=== PATIENT | male | born 1940 | race Caucasian/White ===

== ENCOUNTER 2021-12-28 09:37 | Day surgery (SDC) | payer MEDICARE, OTHER ==
[~2021-12-28] VITALS: Ht 154.9 cm; Wt 76.5 kg
[2021-12-28] MEDS ORDERED: albumin 25% 100mL bottle x 1 IV PRN (10:05)
[2021-12-28 10:54] VITALS: BP 146/78
[2021-12-28] MEDS ORDERED: TADA20TA PO (11:01)
[2021-12-28] MEDS ORDERED: FURO20TA4 PO (11:01)
[2021-12-28] MEDS ORDERED: HYDR-3972 PO (11:01)
[2021-12-28] MEDS ORDERED: APIX5TAB3 PO (11:01)
[2021-12-28] MEDS ORDERED: BISO1TAB38 PO (11:01)
[2021-12-28] MEDS ORDERED: LEVO100T9 PO (11:01)
[2021-12-28] MEDS ORDERED: TEST200V33 IM (11:01)
[2021-12-28] MEDS ORDERED: LORA-268 PO (11:01)
[2021-12-28] MEDS ORDERED: LIDOcaine 1%/PF 5ML 10 MG/ML VIAL IJ ONE (11:05)
[2021-12-28 11:15] VITALS: BP 153/92
[2021-12-28 11:30] VITALS: BP 155/106
[2021-12-28 11:45] VITALS: BP 152/89
[2021-12-28 12:00] VITALS: BP 149/81
== END 2021-12-28 12:05 | disposition home or self-care (01) ==
LOC: SSTAY O 09:37
PROVIDERS: ATTEND Preventive Medicine Aerospace Medicine
DX: J90 Pleural effusion, not elsewhere classified (principal); G47.33 Obstructive sleep apnea (adult) (pediatric); I48.91 Unspecified atrial fibrillation; E03.9 Hypothyroidism, unspecified; F41.9 Anxiety disorder, unspecified; I27.20 Pulmonary hypertension, unspecified; Z98.890 Other specified postprocedural states; Z79.899 Other long term (current) drug therapy
CPT/HCPCS: 32555; 87070; J3490; 36415; 88108; 88305; 88341; 88342; C1729

== ENCOUNTER 2023-02-07 12:23 | Day surgery (SDC) | payer MEDICARE, OTHER ==
[2023-02-03 15:45] LABS: EOSINOPHILS # (AUTO) 0.3 X10'3 (0-0.9); MEAN PLATELET VOLUME 8.9 FL (7.4-10.4)
[2023-02-03 15:48] LABS: BASOPHILS % (AUTO) 0.4 % (0-1); EOSINOPHILS % (AUTO) 3.1 % (0-6); HEMATOCRIT 58.3 % (42.0-52.0); LYMPHOCYTES % (AUTO) 30.3 % (21-51); MEAN CORPUSCULAR HEMOGLOBIN 31.8 PG (27.0-31.0); MEAN CORPUSCULAR VOLUME 93.5 FL (78-98); MONOCYTES # (AUTO) 0.8 X10'3 (0-0.9); MONOCYTES % (AUTO) 8.4 % (2-12); NEUTROPHILS # (AUTO) 5.8 X10'3 (1.8-7.7); NEUTROPHILS % (AUTO) 57.8 % (42-75); PLATELET COUNT 171 X10'3 (140-440); RED BLOOD COUNT 6.23 X10'6 (4.70-6.10); RED CELL DISTRIBUTION WIDTH 15.7 % (11.5-14.5)
[2023-02-03 15:50] LABS: ALBUMIN 3.4 G/DL (3.4-5.0); ANION GAP 7 (8-16); BLOOD UREA NITROGEN 19 MG/DL (7-18); BUN/CREATININE RATIO 11.2 (10.0-20.0); CALCIUM 8.8 MG/DL (8.5-10.1); CHLORIDE 104 MMOL/L (99-107); CREATININE 1.69 MG/DL (0.60-1.10); GLUCOSE 90 MG/DL (70-104); POTASSIUM 3.9 MMOL/L (3.5-5.1); SODIUM 141 MMOL/L (135-145); eGFR 39 ML/MIN
[2023-02-03 16:06] LABS: HEMOGLOBIN 19.8 g/dl (14.0-17.9)
[~2023-02-07] VITALS: Ht 154.9 cm; Wt 73.8 kg
[2023-02-07] VITALS (7 sets, daily range): BP systolic 104–149; BP diastolic 67–110; PULSE 89–118; RESP 16–26; TEMP 98; O2SAT 91–95
[~2023-02-07 12:23] MED LIST: APIX5TAB3 PO; BISO1TAB38 PO; FURO20TA4 PO; HYDR-3972 PO; LEVO100T9 PO; LORA-268 PO; TADA20TA PO; TEST200V33 IM
[2023-02-07] MEDS ORDERED: normal saline 1,000 ML IV SCH (12:35)
[2023-02-07] MEDS ORDERED: LORazepam 0.5 MG tablet PO PRN (12:35)
[2023-02-07] MEDS ORDERED: GUAI400T92 PO (13:02)
[2023-02-07] MEDS ORDERED: POTA10CA85 PO (13:02)
[2023-02-07] MEDS ORDERED: MULT-1172 PO (13:02)
[2023-02-07] MEDS ORDERED: METO-395 PO (13:02)
[2023-02-07] MEDS ORDERED: EMPA10TA PO (13:02)
[2023-02-07] MEDS ORDERED: LIDOcaine 1% 30ml preserv. free vial ONE (14:18)
[2023-02-07] MEDS ORDERED: midazolam 1 mg/ML 2ml injection ONE (14:19)
[2023-02-07] MEDS ORDERED: iohexol 350 MG/ML 50ML vial IV ONE (14:19)
[2023-02-07] MEDS ORDERED: fentaNYL/PF 50MCG/1 ML 2ML syringe ONE (14:19)
[2023-02-07] MEDS ORDERED: HYDROcodone/acetaminophen 10/325mg tab PO PRN (16:00)
[2023-02-07] MEDS ORDERED: HYDROcodone/acetaminophen 5mg/325mg tablet PO PRN (16:00)
[2023-02-08 06:48] LABS: ISTAT Hct MIX 50 %PCV (42-52); ISTAT O2 SATURATION MIX VENOUS 61 % (60-80); ISTAT SOURCE BLNK
== END 2023-02-07 17:28 | disposition home or self-care (01) ==
LOC: SSTAY O 12:23
PROVIDERS: ATTEND Student in an Organized Health Care Education/Training Program
DX: I11.0 Hypertensive heart disease with heart failure (principal); I50.9 Heart failure, unspecified; I48.91 Unspecified atrial fibrillation; G47.33 Obstructive sleep apnea (adult) (pediatric); E03.9 Hypothyroidism, unspecified; Z79.01 Long term (current) use of anticoagulants; Z79.899 Other long term (current) drug therapy
CPT/HCPCS: 33289; 80048; 82803; 85014; 85025; 93005; 99152; 99153; C2624; J1644; J2250; J3010; J3490; J7030; Q9967; A6258; A6449; C1751; C1769; C1892

== ENCOUNTER 2023-08-03 11:21 | Emergency (ER) | payer MEDICARE, OTHER ==
[~2023-08-03] VITALS: Ht 149.9 cm; Wt 76.6 kg
[~2023-08-03 11:21] MED LIST changes: -BISO1TAB38 PO; +EMPA10TA PO; +GUAI400T92 PO; -HYDR-3972 PO; -LORA-268 PO; +METO-395 PO; +MULT-1172 PO; +POTA10CA85 PO
[2023-08-03 11:23] VITALS: BP 125/60; PULSE 83; RESP 16; TEMP 98; O2SAT 96
[2023-08-03 13:18] LABS: BASOPHILS % (AUTO) 0.3 % (0-1); EOSINOPHILS # (AUTO) 0.4 X10'3 (0-0.9); EOSINOPHILS % (AUTO) 4.4 % (0-6); HEMATOCRIT 50.6 % (42.0-52.0); HEMOGLOBIN 16.9 g/dl (14.0-17.9); LYMPHOCYTES # (AUTO) 2.1 X10'3 (1.1-4.8); LYMPHOCYTES % (AUTO) 22.7 % (21-51); MEAN CORPUSCULAR HEMOGLOBIN 31.8 PG (27.0-31.0); MEAN CORPUSCULAR HGB CONC 33.5 g/dL (33.0-36.5); MEAN CORPUSCULAR VOLUME 94.9 FL (78-98); MEAN PLATELET VOLUME 9.4 FL (7.4-10.4); MONOCYTES # (AUTO) 0.8 X10'3 (0-0.9); MONOCYTES % (AUTO) 8.8 % (2-12); NEUTROPHILS % (AUTO) 63.8 % (42-75); PLATELET COUNT 203 X10'3 (140-440); RED BLOOD COUNT 5.33 X10'6 (4.70-6.10); RED CELL DISTRIBUTION WIDTH 15.3 % (11.5-14.5); WHITE BLOOD COUNT 9.4 X10'3 (4.5-11.0)
[2023-08-03 14:00] LABS: ALANINE AMINOTRANSFERASE 18 U/L (12-78); ALBUMIN 3.4 G/DL (3.4-5.0); ALBUMIN/GLOBULIN RATIO 0.9 (1.1-1.5); ALKALINE PHOSPHATASE 48 IU/L (46-116); ANION GAP 10 (8-16); ASPARTATE AMINO TRANSFERASE 21 U/L (10-37); BILIRUBIN,TOTAL 0.4 MG/DL (0.1-1.0); BLOOD UREA NITROGEN 32 MG/DL (7-18); BUN/CREATININE RATIO 15.4 (10.0-20.0); CALCIUM 8.4 MG/DL (8.5-10.1); CHLORIDE 109 MMOL/L (99-107); CREATININE 2.08 MG/DL (0.60-1.10); GLUCOSE 89 MG/DL (70-104); PRO BRAIN NATRIURETIC PEPTIDE 325 PG/ML (0-450); SODIUM 144 MMOL/L (135-145); TOTAL CARBON DIOXIDE 24.9 MMOL/L (24-32); TOTAL PROTEIN 7.4 G/DL (6.4-8.2); eCRCL 19 ML/MIN; eGFR 31 ML/MIN
[2023-08-03 14:02] LABS: POTASSIUM 4.4 MMOL/L (3.5-5.1)
[2023-08-03] MEDS ORDERED: ALBU18HF2 INH (14:54)
[2023-08-03] MEDS ORDERED: LEVO-65 PO (14:54)
[2023-08-03] MEDS ORDERED: HYDR-3964 PO (15:02)
== END 2023-08-03 16:06 | disposition home or self-care (01) ==
LOC: ER 11:21
DX: R05.9 Cough, unspecified (principal)
CPT/HCPCS: 36415; 71046; 80053; 83880; 85025; 99284

== ENCOUNTER 2023-09-06 09:09 | Inpatient (IN) | payer MEDICARE, OTHER ==
[~2023-09-06] VITALS: Ht 162.6 cm; Wt 75.0 kg
[2023-09-06] VITALS (8 sets, daily range): BP systolic 93; BP diastolic 49; PULSE 79–173; RESP 16–29; TEMP 97.9; O2SAT 93–97
[~2023-09-06 09:09] MED LIST changes: +ALBU18HF2 INH
[2023-09-06] MEDS: normal saline 1000ML IV soln IVB ONE ×2 (09:27→10:01)
[2023-09-06] MEDS: acetaminophen 650mg rectal suppository RC STA (09:31)
[2023-09-06] MEDS: methylPREDNISolone sod succ 125mg/2ml vial IV ONE (09:32)
[2023-09-06] MEDS: metoprolol tartrate 1mg/ml inj IV ONE (09:32)
[2023-09-06] MEDS: piperacillin/tazo 3.375gm/50ml 50 ML IV ONE (09:32)
[2023-09-06 09:38] LABS: ABG BASE EXCESS 0.5 mmol/L (-2.0-2.0); ABG HCO3 23.2 mmol/L (22.0-26.0); ABG OXYGEN SATURATION 98.2 % (94-97); ABG PCO2 (T) 36.9 mmHg (35.0-48.0); ABG PH (T) 7.425 (7.340-7.440); ABG PO2 (T) 121.7 mmHg (75.0-100.0); ALLEN'S TEST Yes; FCOHb 0.3 % (0.0-3.9); FHHb 1.8 % (0.0-5.0); FMetHb 0.7 % (0.0-1.5); FO2Hb 97.2 % (94-97); PATIENT TEMPERATURE 39.3; TOTAL HEMOGLOBIN 20.7 G/dl (14.0-17.9)
[2023-09-06 09:42] LABS: MEAN CORPUSCULAR VOLUME 97.7 FL (78-98); MONOCYTES # (AUTO) 0.5 X10'3 (0-0.9); MONOCYTES % (AUTO) 2.3 % (2-12)
[2023-09-06 09:44] LABS: BASOPHILS % (AUTO) 0.2 % (0-1); EOSINOPHILS # (AUTO) 0.1 X10'3 (0-0.9); EOSINOPHILS % (AUTO) 0.3 % (0-6); HEMATOCRIT 56.2 % (42.0-52.0); LYMPHOCYTES % (AUTO) 5.1 % (21-51); MEAN CORPUSCULAR HEMOGLOBIN 32.9 PG (27.0-31.0); MEAN CORPUSCULAR HGB CONC 33.7 g/dL (33.0-36.5); MEAN PLATELET VOLUME 9.3 FL (7.4-10.4); NEUTROPHILS # (AUTO) 18.8 X10'3 (1.8-7.7); NEUTROPHILS % (AUTO) 92.1 % (42-75); PLATELET COUNT 144 X10'3 (140-440); RED BLOOD COUNT 5.75 X10'6 (4.70-6.10); RED CELL DISTRIBUTION WIDTH 16.7 % (11.5-14.5); WHITE BLOOD COUNT 20.4 X10'3 (4.5-11.0)
[2023-09-06 09:56] LABS: HEMOGLOBIN 18.9 g/dl (14.0-17.9)
[2023-09-06 10:09] LABS: ALBUMIN 3.2 G/DL (3.4-5.0); ANION GAP 10 (8-16); BLOOD UREA NITROGEN 22 MG/DL (7-18); CALCIUM 8.9 MG/DL (8.5-10.1); CHLORIDE 102 MMOL/L (99-107); CREATININE 1.57 MG/DL (0.60-1.10); GLUCOSE 104 MG/DL (70-104); MAGNESIUM 1.8 MG/DL (1.5-2.4); PRO BRAIN NATRIURETIC PEPTIDE 2714 PG/ML (0-450); SODIUM 138 MMOL/L (135-145); eCRCL 31 ML/MIN; eGFR 43 ML/MIN
[2023-09-06 10:23] LABS: POTASSIUM 4.6 MMOL/L (3.5-5.1)
[2023-09-06 10:27] LABS: BILIRUBIN,URINE NEGATIVE (Neg); CLARITY,URINE SLIGHTLY CLOUDY (Clear); COLOR,URINE YELLOW (Yellow); GLUCOSE, URINE 500 mg/dl (Neg); KETONES,URINE NEGATIVE (Neg); LEUKOCYTE ESTERASE ,URINE TRACE (Neg); NITRITES, URINE NEGATIVE (Neg); OCCULT BLOOD,URINE MODERATE (Neg); PH,URINE 5.5 (4.8-8.0); PROTEIN,URINE NEGATIVE (Neg); UROBILINOGEN,URINE 0.2 E.U/dL (0.2-1.0)
[2023-09-06] MEDS: carvedilol 6.25mg tablet PO ONE (10:29)
[2023-09-06 10:34] LABS: UA COLLECTION TYPE URINAL
[2023-09-06 10:35] LABS: SQUAMOUS EPITHELIAL CELL,UR FEW /LPF (FEW)
[2023-09-06 10:36] LABS: BACTERIA,URINE FEW /HPF (Neg); RBC,URINE 20-50 /HPF (0-2)
[2023-09-06] MEDS: normal saline 1000ml 1,000 ML IV ONE (10:42)
[2023-09-06] MEDS: amiodarone 150mg/dext, iso-os 100 ML IV ONE (12:30)
[2023-09-06] MEDS: vancomycin/NS 1 GM ADD-VANTAGE 250 ML IV ONE (12:37)
[2023-09-06] MEDS: amiodarone/D5 360MG/200ML BAG 200 ML IV SCH (12:45)
[2023-09-06] MEDS ORDERED: VALS40TA11 PO (13:25)
[2023-09-06] MEDS ORDERED: SPIR25TA5 PO (13:25)
[2023-09-06] MEDS ORDERED: CARV-49 PO (13:25)
[2023-09-06] MEDS ORDERED: ALPR0.252 PO (13:27)
[2023-09-06] MEDS ORDERED: PRE5T PO (13:27)
[2023-09-06] MEDS ORDERED: mag hydrox/Alum hydrox/simeth 30ml oral suspension PO PRN (15:20)
[2023-09-06] MEDS ORDERED: magnesium 2GM in 50ml NS 50 ML IV PRN (15:20)
[2023-09-06] MEDS ORDERED: ondansetron/PF 4mg/2ml inj IV PRN (15:20)
[2023-09-06] MEDS ORDERED: magnesium Cl slow-release 64mg tablet PO PRN (15:20)
[2023-09-06] MEDS ORDERED: potassium Cl 40MEQ/1/2NS 520ml 520 ML IV PRN (15:20)
[2023-09-06] MEDS ORDERED: magnesium hydroxide 30ml (MOM) UD suspension PO PRN (15:20)
[2023-09-06] MEDS ORDERED: magnesium 4gm in 100ml NS 100 ML IV PRN (15:20)
[2023-09-06] MEDS ORDERED: potassium Cl 20 mEq SR tablet PO PRN ×2 (15:20)
[2023-09-06] MEDS: ipratropium/albuterol 3ml nebule NEB SCH (15:30)
[2023-09-06] MEDS: piperacillin/tazo 3.375gm/50ml 50 ML IV SCH (15:33)
[2023-09-06] MEDS: ringers solution, lacted 1,000 ML IV SCH (15:33)
[2023-09-06] MEDS: digoxin 250mcg/ml 2ml ampule IV STA (15:42)
[2023-09-06 17:29] LABS: D-DIMER 0.54 MG/L FEU (0-0.50)
[2023-09-06] MEDS ORDERED: carvedilol 6.25mg tablet PO SCH (20:00)
[2023-09-06] MEDS: K and/or MAG REPLACEMENT MC SCH (20:00)
[2023-09-06] MEDS: docusate sod 100mg capsule PO SCH (20:00)
[2023-09-06] MEDS: carvedilol 6.25mg tablet PO SCH (20:29)
[2023-09-06] MEDS: apixaban 2.5mg tablet PO SCH (20:29)
[2023-09-06] MEDS: TADALAFIL 20MG PO SCH (20:31)
[2023-09-06] MEDS: digoxin 250mcg/ml 2ml ampule IV ONE (21:29)
[2023-09-06] MEDS: acetaminophen 325mg tablet PO PRN (22:14)
[2023-09-06] MEDS: ALPRAZolam 0.25mg tablet PO SCH (23:11)
[2023-09-07] VITALS (18 sets, daily range): BP systolic 90–132; BP diastolic 57–89; PULSE 67–118; RESP 16–22; TEMP 97.7–98.6; O2SAT 91–98
[2023-09-07] MEDS: digoxin 250mcg/ml 2ml ampule IV ONE ×2 (03:35→03:36)
[2023-09-07 09:12] LABS: BASOPHILS # (AUTO) 0.1 X10'3 (0-0.2); BASOPHILS % (AUTO) 0.5 % (0-1); EOSINOPHILS % (AUTO) 0.1 % (0-6); HEMATOCRIT 52.2 % (42.0-52.0); HEMOGLOBIN 17.2 g/dl (14.0-17.9); LYMPHOCYTES # (AUTO) 0.7 X10'3 (1.1-4.8); LYMPHOCYTES % (AUTO) 2.3 % (21-51); MEAN CORPUSCULAR HEMOGLOBIN 32.8 PG (27.0-31.0); MEAN CORPUSCULAR HGB CONC 32.9 g/dL (33.0-36.5); MEAN CORPUSCULAR VOLUME 99.8 FL (78-98); MEAN PLATELET VOLUME 9.8 FL (7.4-10.4); MONOCYTES # (AUTO) 1.2 X10'3 (0-0.9); MONOCYTES % (AUTO) 4.2 % (2-12); NEUTROPHILS # (AUTO) 26.5 X10'3 (1.8-7.7); NEUTROPHILS % (AUTO) 92.9 % (42-75); PLATELET COUNT 116 X10'3 (140-440); RED BLOOD COUNT 5.23 X10'6 (4.70-6.10); RED CELL DISTRIBUTION WIDTH 17.8 % (11.5-14.5)
[2023-09-07 09:21] LABS: HEMOGLOBIN A1C 5.5 % (4.5-6.2)
[2023-09-07 09:22] LABS: INR 1.4 INR
[2023-09-07 09:26] LABS: WHITE BLOOD COUNT 28.5 X10'3 (4.5-11.0)
[2023-09-07] MEDS: levoTHYROXINE 100mcg tablet PO SCH (09:48)
[2023-09-07] MEDS: pantoprazole 40mg Tablet.DR PO SCH (09:48)
[2023-09-07 09:50] LABS: PLATELET ESTIMATE DECREASED; TOTAL CELLS COUNTED 100
[2023-09-07 09:51] LABS: ANISOCYTOSIS 1+; TOXIC GRANULATION 2+
[2023-09-07 10:00] LABS: ALANINE AMINOTRANSFERASE 32 U/L (12-78); ALBUMIN 2.7 G/DL (3.4-5.0); ALBUMIN/GLOBULIN RATIO 0.7 (1.1-1.5); ALKALINE PHOSPHATASE 42 IU/L (46-116); ANION GAP 12 (8-16); ASPARTATE AMINO TRANSFERASE 18 U/L (10-37); BLOOD UREA NITROGEN 38 MG/DL (7-18); CALCIUM 8.6 MG/DL (8.5-10.1); CHLORIDE 103 MMOL/L (99-107); CHOL/HDL RATIO 1.8 (0.00-4.99); CHOLESTEROL 79 MG/DL (0-200); FREE T4 (FREE THYROXINE) 0.99 NG/DL (0.73-1.40); GLUCOSE 121 MG/DL (70-104); HDL CHOLESTEROL 44 MG/DL (35-60); LDL CHOLESTEROL 18 MG/DL (50-100); MAGNESIUM 2.3 MG/DL (1.5-2.4); PHOSPHORUS 5.6 MG/DL (2.3-4.5); POTASSIUM 4.9 MMOL/L (3.5-5.1); SODIUM 139 MMOL/L (135-145); THYROID STIMULATING HORMONE 0.81 ulU/ml (0.34-4.50); TOTAL CARBON DIOXIDE 24.2 MMOL/L (24-32); TOTAL PROTEIN 6.5 G/DL (6.4-8.2); TRIGLYCERIDES 72 MG/DL (20-135); eCRCL 24 ML/MIN; eGFR 32 ML/MIN
[2023-09-07] MEDS: VANCOMYCIN 750MG IV in NS 250 ML IV SCH (11:53)
[2023-09-07] MEDS ORDERED: loperamide 2mg capsule PO PRN (23:10)
[2023-09-07] MEDS: loperamide 2mg capsule PO ONE (23:29)
[2023-09-07] MEDS: albuterol 2.5 MG/3 ML nebule NEB PRN (23:42)
[2023-09-08] VITALS (12 sets, daily range): BP systolic 110–125; BP diastolic 51–73; PULSE 89–116; RESP 11–23; TEMP 97.4–99; O2SAT 91–96
[2023-09-08] MEDS: ipratropium/albuterol 3ml nebule NEB SCH (01:00)
[2023-09-08] MEDS: guaiFENesin/DM 10ml UD oral syrup PO SCH (01:00)
[2023-09-08 06:57] LABS: INR 1.1 INR; PROTHROMBIN TIME 11.6 SECONDS (9.0-12.0)
[2023-09-08 07:00] LABS: BASOPHILS % (AUTO) 0 % (0-1); EOSINOPHILS % (AUTO) 0.1 % (0-6); HEMATOCRIT 46.9 % (42.0-52.0); HEMOGLOBIN 15.3 g/dl (14.0-17.9); LYMPHOCYTES % (AUTO) 4.5 % (21-51); MEAN CORPUSCULAR HEMOGLOBIN 32.5 PG (27.0-31.0); MEAN CORPUSCULAR HGB CONC 32.7 g/dL (33.0-36.5); MEAN CORPUSCULAR VOLUME 99.6 FL (78-98); MEAN PLATELET VOLUME 9.6 FL (7.4-10.4); MONOCYTES # (AUTO) 0.7 X10'3 (0-0.9); MONOCYTES % (AUTO) 3.4 % (2-12); NEUTROPHILS # (AUTO) 20.3 X10'3 (1.8-7.7); PLATELET COUNT 114 X10'3 (140-440); RED BLOOD COUNT 4.71 X10'6 (4.70-6.10); RED CELL DISTRIBUTION WIDTH 17.6 % (11.5-14.5); WHITE BLOOD COUNT 22.1 X10'3 (4.5-11.0)
[2023-09-08 07:04] LABS: ALANINE AMINOTRANSFERASE 81 U/L (12-78); ALBUMIN 2.5 G/DL (3.4-5.0); ALBUMIN/GLOBULIN RATIO 0.7 (1.1-1.5); ALKALINE PHOSPHATASE 57 IU/L (46-116); ANION GAP 8 (8-16); ASPARTATE AMINO TRANSFERASE 50 U/L (10-37); BILIRUBIN,TOTAL 0.8 MG/DL (0.1-1.0); BLOOD UREA NITROGEN 40 MG/DL (7-18); BUN/CREATININE RATIO 22.3 (10.0-20.0); CALCIUM 8.3 MG/DL (8.5-10.1); CHLORIDE 106 MMOL/L (99-107); CREATININE 1.79 MG/DL (0.60-1.10); GLUCOSE 121 MG/DL (70-104); MAGNESIUM 2.3 MG/DL (1.5-2.4); PHOSPHORUS 3.1 MG/DL (2.3-4.5); POTASSIUM 4.4 MMOL/L (3.5-5.1); SODIUM 139 MMOL/L (135-145); TOTAL CARBON DIOXIDE 25.2 MMOL/L (24-32); TOTAL PROTEIN 6.2 G/DL (6.4-8.2); eCRCL 27 ML/MIN; eGFR 37 ML/MIN
[2023-09-08] MEDS ORDERED: loperamide 2mg capsule PO PRN (12:10)
[2023-09-08] MEDS ORDERED: ALPRAZolam 0.25mg tablet PO PRN (12:10)
[2023-09-08] MEDS ORDERED: GUAIFENESIN PO PRN (12:30)
[2023-09-08] MEDS ORDERED: benzonatate 100mg capsule PO PRN (12:30)
[2023-09-08] MEDS ORDERED: non-formulary drug (Albuterol Sulfate (Ventolin Hfa) 2 PUFFS) INH PRN (12:30)
[2023-09-08] MEDS: HYDROcodone/acetaminophen 5mg/325mg tablet PO SCH (16:14)
[2023-09-08 17:00] LABS: C-REACTIVE PROTEIN 9.9 MG/DL (0.0-0.5)
[2023-09-08 17:07] LABS: BILIRUBIN,URINE NEGATIVE (Neg); CLARITY,URINE CLEAR (Clear); COLOR,URINE YELLOW (Yellow); GLUCOSE, URINE NEGATIVE (Neg); KETONES,URINE NEGATIVE (Neg); LEUKOCYTE ESTERASE ,URINE NEGATIVE (Neg); NITRITES, URINE NEGATIVE (Neg); OCCULT BLOOD,URINE TRACE-INTACT (Neg); PROTEIN,URINE NEGATIVE (Neg); UROBILINOGEN,URINE 0.2 E.U/dL (0.2-1.0)
[2023-09-08 17:16] LABS: UA COLLECTION TYPE CLN CATCH MIDSTREAM
[2023-09-08 17:18] LABS: BACTERIA,URINE NONE SEEN /HPF (Neg); RBC,URINE 0-2 /HPF (0-2); WBC,URINE 0-4 /HPF (0-4)
[2023-09-08 17:19] LABS: MUCUS STRANDS FEW /LPF (Neg); SQUAMOUS EPITHELIAL CELL,UR FEW /LPF (FEW); URIC ACID CRYSTALS 3+ /HPF (NEGATIVE)
[2023-09-08] MEDS: predniSONE 20 mg tablet PO SCH (17:44)
[2023-09-09] VITALS (10 sets, daily range): BP systolic 109–131; BP diastolic 56–84; PULSE 85–110; RESP 16–29; TEMP 97.5–98.2; O2SAT 92–96
[2023-09-09 06:39] LABS: BASOPHILS % (AUTO) 0.1 % (0-1); EOSINOPHILS % (AUTO) 0 % (0-6); HEMATOCRIT 45.8 % (42.0-52.0); LYMPHOCYTES # (AUTO) 0.5 X10'3 (1.1-4.8); LYMPHOCYTES % (AUTO) 4.4 % (21-51); MEAN CORPUSCULAR HEMOGLOBIN 32.8 PG (27.0-31.0); MEAN CORPUSCULAR HGB CONC 32.7 g/dL (33.0-36.5); MEAN CORPUSCULAR VOLUME 100.4 FL (78-98); MEAN PLATELET VOLUME 9.5 FL (7.4-10.4); MONOCYTES # (AUTO) 0.3 X10'3 (0-0.9); MONOCYTES % (AUTO) 2.6 % (2-12); NEUTROPHILS # (AUTO) 11.3 X10'3 (1.8-7.7); NEUTROPHILS % (AUTO) 92.9 % (42-75); PLATELET COUNT 105 X10'3 (140-440); RED BLOOD COUNT 4.56 X10'6 (4.70-6.10); RED CELL DISTRIBUTION WIDTH 17.6 % (11.5-14.5); WHITE BLOOD COUNT 12.2 X10'3 (4.5-11.0)
[2023-09-09 06:48] LABS: PROTHROMBIN TIME 10.9 SECONDS (9.0-12.0)
[2023-09-09 06:56] LABS: ALANINE AMINOTRANSFERASE 93 U/L (12-78); ALBUMIN 2.5 G/DL (3.4-5.0); ALBUMIN/GLOBULIN RATIO 0.7 (1.1-1.5); ALKALINE PHOSPHATASE 67 IU/L (46-116); ANION GAP 9 (8-16); ASPARTATE AMINO TRANSFERASE 33 U/L (10-37); BILIRUBIN,TOTAL 1.2 MG/DL (0.1-1.0); BLOOD UREA NITROGEN 38 MG/DL (7-18); BUN/CREATININE RATIO 24.2 (10.0-20.0); CALCIUM 8.1 MG/DL (8.5-10.1); CHLORIDE 106 MMOL/L (99-107); CREATININE 1.57 MG/DL (0.60-1.10); GLUCOSE 140 MG/DL (70-104); MAGNESIUM 2.4 MG/DL (1.5-2.4); PHOSPHORUS 3.9 MG/DL (2.3-4.5); POTASSIUM 4.9 MMOL/L (3.5-5.1); SODIUM 140 MMOL/L (135-145); TOTAL CARBON DIOXIDE 25.4 MMOL/L (24-32); TOTAL PROTEIN 6.2 G/DL (6.4-8.2); eCRCL 31 ML/MIN; eGFR 43 ML/MIN
[2023-09-09] MEDS: spironolactone 25 MG tablet PO SCH (07:45)
[2023-09-09] MEDS: EMPAGLIFLOZIN 10 MG TABLET PO SCH (07:52)
[2023-09-09] MEDS ORDERED: predniSONE 20 mg tablet PO SCH (08:00)
[2023-09-09] MEDS: VANCOMYCIN LEVEL IV ONE (12:13)
[2023-09-09] MEDS ORDERED: LEVO-65 PO (14:11)
[2023-09-10] MEDS ORDERED: vancomycin/NS 1 GM ADD-VANTAGE 250 ML IV SCH (12:00)
[2023-09-13] MEDS ORDERED: VANCOMYCIN LEVEL IV ONE (11:30)
== END 2023-09-09 15:25 | disposition home or self-care (01) | DRG 871 ==
LOC: ER 09:10 → ED HOLD 15:19 → UNDOADMIN 15:19 → ED HOLD 19:04 → PCU 3S 22:30 → ED HOLD 22:30 → PCU 3S 09-09 04:56
PROVIDERS: ADMIT Internal Medicine Critical Care Medicine; ATTEND Internal Medicine Critical Care Medicine
PROC: 5A09357 Assistance with Respiratory Ventilation, Less than 24 Consecutive Hours, Continuous Positive Airway Pressure (ICD-10-PCS; principal; 2023-09-06)
PROC: 5A09357 Assistance with Respiratory Ventilation, Less than 24 Consecutive Hours, Continuous Positive Airway Pressure (ICD-10-PCS; 2023-09-07)
DX: A41.9 Sepsis, unspecified organism (principal); I50.33 Acute on chronic diastolic (congestive) heart failure; J18.9 Pneumonia, unspecified organism; J96.01 Acute respiratory failure with hypoxia; I13.0 Hypertensive heart and chronic kidney disease with heart failure and stage 1 through stage 4 chronic kidney disease, or unspecified chronic kidney disease; N17.9 Acute kidney failure, unspecified; N39.0 Urinary tract infection, site not specified; K92.1 Melena; I48.91 Unspecified atrial fibrillation; Z20.822 Contact with and (suspected) exposure to COVID-19; E86.0 Dehydration; E78.5 Hyperlipidemia, unspecified; G47.33 Obstructive sleep apnea (adult) (pediatric); N18.9 Chronic kidney disease, unspecified; D75.1 Secondary polycythemia; E03.9 Hypothyroidism, unspecified; Z79.01 Long term (current) use of anticoagulants; Z79.899 Other long term (current) drug therapy
CPT/HCPCS: 36415; 36600; 71045; 71250; 74176; 80048; 80053; 80061; 80202; 81001; 82803; 83036; 83605; 83735; 83880; 84100; 84145; 84439; 84443; 84484; 85007; 85018; 85025; 85379; 85610; 85651; 86140; 87040; 87045; 87046; 87081; 87088; 87324; 87449; 87502; 87503; 87811; 89055; 93005; 93306; 94640; 94660; 94760; 96365; 96367; 99285; 99291; A4615; A6212; A6250; A6258; A6590; G0378; J0282; J1160; J2543; J2930; J3370; J3490; J7030; J7040; J7050; J7120; J7512

== ENCOUNTER 2024-06-06 15:22 | Outpatient (CLI) | payer MEDICARE, OTHER ==
[~2024-06-06 15:22] MED LIST changes: +ALPR0.252 PO; +CARV-49 PO; -FURO20TA4 PO; -METO-395 PO; -POTA10CA85 PO; +PRE5T PO; +SPIR25TA5 PO
== END 2024-06-06 23:59 | disposition home or self-care (01) ==
LOC: RAD 15:22
PROVIDERS: ATTEND Family Medicine
DX: R06.02 Shortness of breath (principal)
CPT/HCPCS: 71046

== ENCOUNTER 2024-11-05 10:13 | Day surgery (SDC) | payer MEDICARE, OTHER ==
[2024-11-04 11:47] LABS: BASOPHILS % (AUTO) 0.4 % (0-1); EOSINOPHILS % (AUTO) 0.5 % (0-6); LYMPHOCYTES # (AUTO) 1.4 X10'3 (1.1-4.8); LYMPHOCYTES % (AUTO) 14.6 % (21-51); MEAN CORPUSCULAR HEMOGLOBIN 31.1 PG (27.0-31.0); MEAN CORPUSCULAR HGB CONC 33.7 g/dL (33.0-36.5); MEAN CORPUSCULAR VOLUME 92.5 FL (78-98); MEAN PLATELET VOLUME 8.5 FL (7.4-10.4); MONOCYTES # (AUTO) 0.6 X10'3 (0-0.9); MONOCYTES % (AUTO) 6.8 % (2-12); NEUTROPHILS # (AUTO) 7.3 X10'3 (1.8-7.7); NEUTROPHILS % (AUTO) 77.7 % (42-75); PLATELET COUNT 187 X10'3 (140-440); RED BLOOD COUNT 6.76 X10'6 (4.70-6.10); RED CELL DISTRIBUTION WIDTH 16.1 % (11.5-14.5); WHITE BLOOD COUNT 9.4 X10'3 (4.5-11.0)
[2024-11-04 12:01] LABS: ALBUMIN 3.5 G/DL (3.4-5.0); ANION GAP 7 (8-16); BLOOD UREA NITROGEN 15 MG/DL (7-18); BUN/CREATININE RATIO 9.8 (10.0-20.0); CALCIUM 8.5 MG/DL (8.5-10.1); CHLORIDE 104 MMOL/L (99-107); CHOL/HDL RATIO 3.9 (0.00-4.99); CHOLESTEROL 154 MG/DL (0-200); CREATININE 1.53 MG/DL (0.60-1.10); GLUCOSE 109 MG/DL (70-104); HDL CHOLESTEROL 39 MG/DL (35-60); LDL CHOLESTEROL 95 MG/DL (50-100); POTASSIUM 3.9 MMOL/L (3.5-5.1); SODIUM 141 MMOL/L (135-145); TRIGLYCERIDES 106 MG/DL (20-135); eGFR 44 ML/MIN
[2024-11-04 12:04] LABS: HEMATOCRIT 62.5 % (42.0-52.0)
[~2024-11-05] VITALS: Ht 154.9 cm; Wt 70.5 kg
[~2024-11-05 10:13] MED LIST changes: -ALBU18HF2 INH; +AMI200T PO; +APIX2.5T PO; -APIX5TAB3 PO; -CARV-49 PO; +CARV-50 PO; +DILT120T20 PO; +FURO40TA4 PO; -GUAI400T92 PO; +LEVO100T PO; -LEVO100T9 PO; -MULT-1172 PO; +OMEP20CA16 PO; +POTA20PA31 PO; -PRE5T PO
[2024-11-05] MEDS ORDERED: fentaNYL/PF 50MCG/1 ML 2ML syringe IV ONE (10:40)
[2024-11-05] MEDS ORDERED: normal saline 1000ml 1,000 ML IV SCH (10:40)
[2024-11-05] MEDS ORDERED: MIDAZolam 1mg/ml 10ml vial IV ONE (10:40)
[2024-11-05 11:03] LABS: APTT 30 SECONDS (22-32); INR 1.1 INR; PROTHROMBIN TIME 11.2 SECONDS (9.0-12.0)
[2024-11-05 11:43] VITALS: BP 112/65; PULSE 101; RESP 18; TEMP 98.1; O2SAT 96
[2024-11-05 11:52] VITALS: RESP 18; O2SAT 96
[2024-11-05] MEDS ORDERED: midazolam 1 mg/ML 2ml injection ONE ×3 (12:17→12:39)
[2024-11-05] MEDS ORDERED: amiodarone 50MG/ML inj IV ONE (12:17)
[2024-11-05] MEDS ORDERED: fentaNYL/PF 50MCG/1 ML 2ML syringe ONE (12:18)
[2024-11-05] MEDS ORDERED: atropine 0.1mg/ml 10ml syringe ONE (12:18)
[2024-11-05 13:00] VITALS: BP 108/70; PULSE 74; RESP 15; O2SAT 93
--- NOTE | 2024-11-05 13:06 | ELECTROCARDIOGRAPH REPORT ---
[facility] Test Date: 2024-11-05 Test Time: 13:04:35 Pat Name: CLAUDIA CHARLES Department: [facility] Patient ID: [facility]-[id number] Room: Gender: M [employer]: SONIDO : 1940 Requested By: ROSALIA CUENCA Order Number: [id number] Reading MD: Dr. TANNER Sam Measurements Intervals [place] Rate: 71 P: 73 RI: 156 QRS: 14 QRSD: 79 T: 114 QT: 408 QTc: 444 Interpretive Statements Pacemaker spikes or artifacts Sinus rhythm Borderline repolarization abnormality Electronically Signed On 11-08-2024 19:12:[address] TANNER Sam Please click the below link to view image of tracing.
[2024-11-05 13:15] VITALS: BP 97/61; PULSE 72; RESP 16; O2SAT 94
[2024-11-05 13:30] VITALS: BP 105/55; PULSE 75; RESP 15; O2SAT 96
--- NOTE | 2024-11-05 14:59 | PROCEDURE NOTE CC ---
Procedure Note Providers to CC CC: JAD CUENCA MD ~ Description Planned Procedure Cardioversion Indications Symptomatic Atrial Fibrillation Post Operative Dx: Same Type of Anesthesia Moderate Sedation. Description It was confirmed that patient has been taking oral anticoagulation without interruption for at least 4 weeks. The appropriate time-out procedure was performed including proper identification of the patient, physician, procedure, documentation, and there were no safety issues identified. The patient participated actively in this. After sedation was achieved, the patient was placed in the supine position and hands free patches were placed on their chest in the AP-lateral position. 1 synchronized cardioversion was provided at 200 Joules with conversion to normal sinus rhythm. This was confirmed on EKG. Complication: None The patient tolerated the procedure well without complications. ROSALIA CUENCA MD Nov 05, 2024 14:59
== END 2024-11-05 13:53 | disposition home or self-care (01) ==
LOC: SSTAY O 10:13
PROVIDERS: ATTEND Student in an Organized Health Care Education/Training Program
DX: I48.0 Paroxysmal atrial fibrillation (principal); I50.9 Heart failure, unspecified; I13.0 Hypertensive heart and chronic kidney disease with heart failure and stage 1 through stage 4 chronic kidney disease, or unspecified chronic kidney disease; G47.33 Obstructive sleep apnea (adult) (pediatric); E03.9 Hypothyroidism, unspecified; Z79.899 Other long term (current) drug therapy; Z98.890 Other specified postprocedural states; I27.20 Pulmonary hypertension, unspecified; I48.92 Unspecified atrial flutter; E78.5 Hyperlipidemia, unspecified
CPT/HCPCS: 36415; 80048; 80061; 83695; 85025; 85610; 85730; 92960; 93005; A4615; J2250; J3010; J7040; 99152; J0282; J0461; J7120